=== PATIENT | male | born 1965 | race Caucasian/White ===

== ENCOUNTER 2020-10-01 00:15 | Emergency (ER) | payer BC, SELFPAY ==
--- NOTE | ~2020-10-01 | XR_ITS ---
EXAMINATION: XR tibia fibula LT 2V DATE: 10/01/2020 00:44 INDICATION: Left lower leg injury. TECHNIQUE: Anteroposterior and lateral views of the left tibia and fibula were obtained. COMPARISON: None. FINDINGS: There is an oblique fracture through the distal fibula with a fracture plane exiting medially at the level of the tibiotalar joint. One cortical width posterior and lateral displacement with minimal ant erior angulation. There is an additional small fracture fragment projecting over the lateral corner o f the talar dome, unclear whether this arises from the fibular fracture over this represents a mildly displaced fracture at the medial side of the posterior malleolus. There is slight lateral subluxatio n of the talar dome with respect to the tibial plafond and with widening of the medial clear space. A nkle joint effusion and diffuse soft tissue swelling about the ankle. No fracture of the more proximal tibia or fibula. Normal alignment and joint space at the left knee. No left knee joint effusion. 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 IMPRESSION: 1. [Minimally displaced and angulated oblique fracture of the distal left fibula consistent with a We pillo type B injury pattern. 2. Slight lateral subluxation of the talar dome with mild widening of the medial clear space of the a nkle mortise suggesting associated deltoid ligament injury. 3. Possible small posterior malleolar fracture. Reviewed, dictated and finalized at location A. L DELIVERY DRIVER IMPRESSION: 1. [Minimally displaced and angulated oblique fracture of the distal left fibul a consistent with a Paulino type B injury pattern. 2. Slight lateral subluxation of the talar dome with mild widening of the media l clear space of the ankle mortise suggesting associated deltoid ligament injur y. 3. Possible small posterior malleolar fracture.
[2020-10-01 00:20] VITALS: BP 160/110; PULSE 100; RESP 20; TEMP 36.6; O2SAT 97
--- NOTE | 2020-10-01 01:08 | ED.LOWEXIN ---
HPI - Extremity Injury (Lower) General Chief Complaint: Extremity Injury, Lower Stated Complaint: Left Leg pain Source: patient and RN notes reviewed Mode of arrival: wheelchair Limitations: no limitations History of Present Illness HPI Narrative: patient states he was turning after closing the gate placed his foot on a downhill angle and heard a sudden pop with severe pain in his lower leg around his ankle. complaint: leg injury Onset (ago): hour(s) (1) Type of Injury: hyperflexion Place: home Severity: severe Severity scale (1-10): 10 Relieving factors: nothing Exacerbating factors: weight bearing and movement Context: walking Associated symptoms: snap/pop sensation, swelling and unable to bear weight Other symptoms: none Related Data Allergies Allergy/AdvReac Type Severity Reaction Status Date / Time Penicillins Allergy Unknown Verified 10/01/20 00:29 Review of Systems Review of Systems: All systems reviewed & are unremarkable except as noted in HPI and below PMFSH Past Medical History Medical History (Updated 10/01/20 @ 01:21 by Bartolo Hinkle MD) No active medical problems Surgical History Surgical History (Updated 10/01/20 @ 01:10 by Bartolo Hinkle MD) History of tonsillectomy Exam Const: General: healthy appearing and no acute distress Nutritional Appearance: well nourished Orientation/consciousness: patient oriented x3 HENMT: Head: normal to inspection Ears: external ears normal Eyes: Conjunctivae: conjunctivae normal Pupils: Equal, round and reactive pupils present EOM: EOMs intact bilaterally Neck: Neck: normal visual inspection Resp: Effort & Inspection: normal respiratory effort Auscultation: clear to auscultation bilaterally Cardio: Rate: regular rate Rhythm: regular rhythm GI: GI Palp: Yes Soft to palpation and No Tenderness to palpation present (GI) Auscultation: normal bowel sounds Back/Spine/Pelvis: Cervical Spine: cervical ROM normal Thoracic/Lumbar Spine: thoraco-lumbar ROM normal Skin: General skin exam: normal color Rashes: no rashes Neuro: General: patient oriented x3, moves all extremities and no focal motor deficits Speech: normal speech Extrem: Left lower extremity: lower leg Details: tenderness Location: of the distal fibula and localized swelling Location: of the distal lower leg Psych: Appearance: grossly normal and well kempt Mental Status: mental status grossly normal Affect: normal affect Attitude: cooperative Thought content: Yes Normal thought content present Course Course Emergency Course: initial fracture management completed in the ER Vital Signs Vital signs: Vital Signs Temperature 36.6 C 10/01/20 00:20 Pulse Rate 100 10/01/20 00:20 Respiratory Rate 20 10/01/20 00:20 Blood Pressure 160/110 H 10/01/20 00:20 Pulse Oximetry 97 10/01/20 00:20 Temperature 36.6 C 10/01/20 00:20 Pulse Rate 100 10/01/20 01:26 Respiratory Rate 18 10/01/20 01:26 Blood Pressure 155/97 H 10/01/20 01:26 Pulse Oximetry 98 10/01/20 01:26 MDM - Extremity Injury (Lower) Imaging Data Attestation: I personally reviewed and interpreted this imaging study as follows: Radiologist's impression: mild displaced oblique fracture through the distal fibula Discharge Plan Discharge Clinical Impression: Fracture of fibula, closed Qualifiers: Encounter type: initial encounter Fibula location: distal Fracture morphology: other fracture Laterality: left Qualified Code(s): S82.832A - Other fracture of upper and lower end of left fibula, initial encounter for closed fracture Patient Disposition: Home, Self-Care Condition: Stable Instructions: Ankle Fracture (ED), Walking Boot (ED) Additional Instructions: only toe-touch weight-bearing. Follow up with orthopedic physician 3-4 days Prescriptions: New hydrocodone-acetaminophen [[place]] 5-325 mg tablet 1 tablet PO Q6H PRN (Reason: pain) Qty: 12 RF: 0 Follow-up/Referrals: Na
[2020-10-01] MEDS: HYDROmorphone HCL INJ (*CRX) 2 MG/ML VIAL 1 MG IM (01:12)
[2020-10-01 01:26] VITALS: BP 155/97; PULSE 100; RESP 18; O2SAT 98
== END 2020-10-01 01:41 | disposition home or self-care (01) ==
PROVIDERS: Emergency Provider Emergency Medicine; PCP Physician Assistant
DX: S82.832A Other fracture of upper and lower end of left fibula, initial encounter for closed fracture (principal); X58.XXXA Exposure to other specified factors, initial encounter
CPT/HCPCS: 29515; 73590; 96372; 99283; 99284; J1170; L2112

== ENCOUNTER → 2020-10-09 09:09 | Outpatient (CLI) | payer BC, SELFPAY ==
[2020-10-09 18:28] LABS: SARS-CoV-2 RNA PCR Negative
== END ==
PROVIDERS: PCP Physician Assistant; Visit Provider Orthopaedic Surgery
DX: Z01.812 Encounter for preprocedural laboratory examination (principal); Z20.822 Contact with and (suspected) exposure to COVID-19
CPT/HCPCS: C9803; U0003; U0005

== ENCOUNTER 2020-10-12 01:32 | Day surgery (SDC) | payer BC, SELFPAY ==
[2020-10-09 13:44] VITALS: BMI 30.1
--- NOTE | 2020-10-11 11:04 | WPDANESEPPF ---
Anes - Initial Pre Proc Eval Procedure: Operation Date: 10/12/20 10:30 Proposed Procedures p Open Reduction Internal Fixation Left Lateral Malleolus Ankle Fracture And Syndesmosis - Con De Leon MD Date/Time: 10/11/20 11:04 Surgeon: Con De Leon MD Pre Op Diagnosis: Fracture Of Left Lateral Malleolus Patient Data Age: 55 Gender: M Height: 1.8 m Weight: 98 kg Allergies Allergy/AdvReac Type Severity Reaction Status Date / Time Penicillins Allergy Unknown Verified 10/09/20 13:40 Home Medications Medication Instructions Recorded Confirmed Type acetaminophen-codeine 1 tablet PO Q4-5H PRN 10/09/20 10/09/20 History ibuprofen 600 mg PO Q6H PRN 10/09/20 10/09/20 History oxycodone-acetaminophen 5 mg-325 1 - 2 tablet PO Q4-6H PRN #40 10/10/20 10/10/20 Rx mg tablet tablet MDD 6 Patient hx anesthesia problems: none Family hx anesthesia problems: none PMFSH Past Medical History Medical History (Updated 10/11/20 @ 11:05 by Bud Flynn MD) ETOH abuse No active medical problems Obesity Surgical History Surgical History (Updated 10/01/20 @ 01:10 by Bartolo Hinkle MD) History of tonsillectomy Social History Social History Smoking packs per day: 0.25 Smoking cigarettes per day: 5.0 Years smoked: 15 Smoking pack-years: 3.75 Smoking status: Former smoker Smoking end date: 03/01/04 Alcohol intake: current Drinks per week: 56 Alcohol use details: 8 DRINKS PER DAY Substance use: never Living arrangements: alone Additional living arrangements comments: STAYING WITH MOTHER TEM Spiritual care concerns: No Anes - Eval Final PreProcedure Day of Procedure 10/11/20 11:04 Patient weight: obese Heart: regular rate and rhythm Lungs: clear to auscultation and normal air movement Airway: Mallampati scale class II Neurological: alert and oriented Last oral intake: >/= 8 hours ASA classification: III Emergent: no Anesthetic plan: proceed Anesthesia type and monitoring: general LMA Informed Consent: The patient's anesthetic plan and its attendant risks and benefits were discussed with the patient/family/POA. Questions were solicited and answers provided to the satisfaction of the patient/family/POA.
[2020-10-12] VITALS (9 sets, daily range): BP systolic 94–135; BP diastolic 69–100; PULSE 70–88; RESP 12–20; TEMP 36.3–37.1; O2SAT 96–100
--- NOTE | ~2020-10-12 | XR_ITS ---
XR surgery orthopedic 10/12/2020 08:39 Indication: Intraoperative fixation of left ankle fracture Procedure: 4 fluoroscopic images of the left ankle. 20 seconds of fluoroscopy. Comparison: 10/01/2020 Findings: Status post intraoperative fixation of distal fibular fracture with sideplate and screws. T he fibula is in anatomic alignment post reduction. Ankle mortise intact. Impression: 1: Anatomic alignment of the left ankle post intraoperative reduction of the distal fibula with sidep late and screws. Reviewed, dictated and finalized at location B. [employer]ERING [employer] LEADER Impression: 1: Anatomic alignment of the left ankle post intraoperative reduction of the di stal fibula with sideplate and screws.
--- NOTE | 2020-10-12 07:00 | WPDANESPNB ---
Anes - Peripheral Nerve Block Date/Time: 10/12/20 07:00 I have discussed with the patient/family/POA the placement of a peripheral nerve block for post-operative pain management, including associated risks, benefits, complications, and side effects. Alternative methods of post-operative analgesia were detailed. Questions were solicited and answers provided to the satisfaction of the patient/family/POA. Time-Out: A pre-procedural Time-Out was completed immediately before starting the procedure and confirmed: Patient Identification, Site, Procedure, Patient Position and the Availability of Requisite Equipment. Clinical Indications: Acute post-operative pain management requested by the operative surgeon. Nerve Block Insertion Note Anes-nerve block: posterior fossa sciatic (20cc) left and adductor canal (10cc) left Patient position: supine Skin prep: chlorhexidine Needle: 22 gauge, stimulating, insulated echogenic needle. Needle length: 80 mm Technique: ultrasound (in plane) Injectate: bupivacaine 0.5% with epi 5 mcg/ml (20cc) Observations: tolerated well Complications: none Procedure start time:: 725 Procedure end time:: 0
[2020-10-12] MEDS: ACETAMINOPHEN 500 MG TABLET 1000 MG PO (07:09)
[2020-10-12] MEDS: LACTATED RINGERS 1,000 ML 30 ML IV CONT ×2 (07:11→09:11)
[2020-10-12] MEDS: KETOROLAC 15 MG/ML VIAL (*BKC) IV PUSH (07:11)
--- NOTE | 2020-10-12 07:24 | WPDHPUPDATE1 ---
History and Physical Update Update Date/Time: 10/12/20 07:24 History and Physical has been reviewed, including an updated exam of the patient. There are NO changes in the patient's condition. Risks, benefits, and alternatives have been discussed and questions answered. Patient agrees to proceed with procedure.
[2020-10-12] MEDS: ceFAZolin 2 GM/D5W 50 ML 2 GM/50 ML BAG IVPB (07:33)
--- NOTE | 2020-10-12 10:21 | P.OP_ITS ---
Procedure Note - Detailed Date of procedure: 10/12/20 Pre-op diagnosis: Fracture Of Left Lateral Malleolus Post-op diagnosis: same Procedure performed: ORIF ankle lateral malleolus fracture, left Description of procedure: The was B type fracture of the lateral malleolus was fixed with the contoured Arthrex locking plate. A single anterior to posterior lag screw was placed with excellent anatomic reduction and compression. Bone quality was excellent. The ankle mortise was carefully assessed and found to be stable. Locking screws were placed and the distal 2.7 mm screw holes. The remaining screws were compression screws. Implants: Arthrex distal fibular anatomic locking plate. [facility] Sur[facility]: Con De Leon MD Biomedical Equipment Support Specialist: Sally Hooks PA-C Estimated blood loss (mL): 10 Drains: No Complications: None Condition: stable Disposition: PACU Findings: Physician delivery driver assistant, Sally Hooks PA-C, required for surgery; including patient positioning, draping, tissue retraction, maintaining instrument position, wound closure, and short leg splint placement. A general anesthetic was administered. The limb was prepped and draped in the usual sterile fashion with a well-padded tourniquet high on the thigh. A bump was placed under the hip. The limb was exsanguinated and the tourniquet infla balbina to 300 millimeters of mercury during the procedure. A longitudinal incision was created at the distal fibula. Careful dissection was carried down to bone. Perineal nerve branches were protected. The fracture was carefully exposed. Callus and debris was irrigated from the wound. The fracture was brought out to length. Reduction was accomplished with the reduction forceps. The fixation pl ate did not require contouring. Fixation was performed with a combination of lag screw, and neutralization screws in the plate. Fluoroscopy was used throughout the procedure to confirm anatomic reduction and appropriate placement of the implants. The ankle mortise was carefully assessed with the Cotton test. There was absolutely no suggestion of instability. The tourniquet was released. Meticulous hemostasis was obtained. Wound was closed in layers with 2-0 Vicryl suture 3-0 Monocryl suture and mike. A sterile splint with padding was applied. The patient was extubated and brought to the recovery room in stable condition. There were no complications.
== END 2020-10-12 11:25 | disposition home or self-care (01) ==
PROVIDERS: PCP Physician Assistant; Visit Provider Orthopaedic Surgery
PROC: (CPT 27792; principal; 2020-10-12 10:30)
DX: S82.62XA Displaced fracture of lateral malleolus of left fibula, initial encounter for closed fracture (principal); G89.18 Other acute postprocedural pain; X50.0XXA Overexertion from strenuous movement or load, initial encounter; Z87.891 Personal history of nicotine dependence; E66.9 Obesity, unspecified; Z68.29 Body mass index [BMI] 29.0-29.9, adult
CPT/HCPCS: 27792; 64445; 64447; A9270; C1713; J0690; J1885; J2250; J2405; J2704; J3010; J7120